=== PATIENT | female | born 1965 | race Caucasian/White ===

== ENCOUNTER 2020-10-18 00:26 | Emergency (ER) | payer OTHER ==
[~2020-10-18] VITALS: Ht 162.6 cm; Wt 72.6 kg
--- NOTE | 2020-10-18 01:00 | NUR ---
PT BIBS WITH C/O SOB SINCE 10PM. PT ALERT AND ORIENTED X4. AMBULATORY WITH IN WAITING ROOM.
--- NOTE | 2020-10-18 01:18 | NUR ---
covid swab done and sent to lab.
[2020-10-18 02:37] VITALS: BP 135/80
--- NOTE | 2020-10-18 02:37 | NUR ---
Patient discharged to home in stable condition. Written and verbal after care instructions given. Patient verbalizes understanding of instruction.
== END 2020-10-18 02:39 | disposition home or self-care (01) ==
LOC: ER 00:26
DX: R05 Cough (principal); Z20.822 Contact with and (suspected) exposure to COVID-19; R03.0 Elevated blood-pressure reading, without diagnosis of hypertension
CPT/HCPCS: 71045; 87426; 99284; C9803